=== PATIENT | female | born 1960 | race Caucasian/White ===

== ENCOUNTER 2024-01-16 15:10 | Outpatient (REF) | payer MEDICARE, SELFPAY | END 2024-01-16 15:11 | disposition home or self-care (01) | LOC: HO.SH 15:10 | PROVIDERS: Visit Provider Nurse Practitioner Family | DX: Z01.118 Encounter for examination of ears and hearing with other abnormal findings (principal); H90.A22 Sensorineural hearing loss, unilateral, left ear, with restricted hearing on the contralateral side | CPT/HCPCS: 92557; 92567 ==